=== PATIENT | female | born 2000 | race African-American/Black ===

== ENCOUNTER 2018-08-06 09:52 | Emergency (ER) | payer MEDICAID, OTHER ==
[~2018-08-06] VITALS: Ht 165.1 cm; Wt 98.0 kg
[2018-08-06 12:23] LABS: MONOTEST NEGATIVE (NEGATIVE)
[2018-08-06 12:45] VITALS: BP 140/77
== END 2018-08-06 12:49 | disposition home or self-care (01) ==
LOC: ER 10:39
DX: J02.9 Acute pharyngitis, unspecified (principal); Z88.0 Allergy status to penicillin
CPT/HCPCS: 86308; 87070; 87430; 99283